=== PATIENT | male | born 1960 | race Caucasian/White ===

== ENCOUNTER → 2016-06-26 | Outpatient (CLI) | payer MEDICAID ==
[~2016-06-26] MED LIST: ANTIVERT/5050 MG PO; NOMEDS XX
--- NOTE | 2016-06-29 05:46 | RADIOLOGY REPORT PS360 ---
MRI-C-SPINE W/O, MRI-3D RENDERING/MYELOGRAM HISTORY: Bilateral neck pain, shoulder pain, bilateral arm pain and numbness. Prior surgery CERVICAL DISC DISEASE, THORACIC SPINE PAIN ORDERING PHYSICIAN: Humberto Medrano MD PATIENT AGE: 56 years COMPARISON: None TECHNIQUE: Standard multiplanar multiecho sequences are performed without contrast. 3-D MIP and myelographic images are also rendered and reviewed FINDINGS: Unremarkable craniocervical junction. There is normal alignment. Hypertrophic changes are present at the atlantoaxial joint mostly anterior. C2-C3: Minimal bulging disc with uncovertebral hypertrophy on the left with mild left foraminal narrowing. C3-C4: There is partial fusion of the C3-C4 vertebral body. C4-C5: Mild concentric bulging disc. Severe facet hypertrophic changes present on the left with left-sided foraminal narrowing. C5-C6: Severe degenerative disc disease. Artifact is present likely from a disc spacer device. Plain film correlation would be helpful. Broad-based disc osteophyte complex is noted with canal stenosis of 10 mm. Bilateral uncovertebral hypertrophy with severe right-sided foraminal narrowing. C6-C7: Severe degenerative disc disease with endplate changes along with bulging disc somewhat eccentric toward the right with canal stenosis of 9 mm with severe bilateral lateral recess narrowing greater on the right and severe right-sided foraminal narrowing. C7-T1: Unremarkable. There is some increased T2 signal involving the spinal cord at the C6-C7 level IMPRESSION: 1. Severe spondylosis of the cervical spine with multilevel degenerative disc disease, bulging disc, and endplate osteophytes as detailed each level above. 2. Postsurgical changes at C5-C6 with disc spacer device along with broad-based disc osteophyte complex with canal stenosis and severe right lateral recess and foraminal narrowing. 3. Severe degenerative disc disease C6-C7 with endplate changes along with bulging disc /disc osteophyte complex somewhat eccentric toward the right with canal stenosis of 9 mm with severe bilateral lateral recess narrowing greater on the right and severe right-sided foraminal narrowing. 4. Nonspecific slight increased T2 signal of the cord at C6-C7 which may be related to some underlying gliosis from the canal stenosis
--- NOTE | 2016-06-29 05:53 | RADIOLOGY REPORT PS360 ---
MRI-T-SPINE W/O HISTORY: Thoracic fine pain, back pain, mid back pain THORACIC SPINE PAIN ORDERING PHYSICIAN: Humberto Medrano MD PATIENT AGE: 56 years COMPARISON: None TECHNIQUE: Standard multiplanar multiecho sequences are performed without contrast. 3-D MIP and myelographic images are also rendered and reviewed FINDINGS: There is normal alignment. No fracture or dislocation is evident. There is mild uniform decrease in the suspected disc height throughout the thoracic spine. T7-T8: There is a small central left paracentral disc herniation with minimal superior extrusion of the disc which is abutting the anterior and left aspect of the cord without cord flattening or displacement. There is minimal prominence of the posterior longitudinal ligament T8-T9, T9-T10, and T10-T11. IMPRESSION: Small central/left paracentral disc herniation with minimal superior extrusion of T7-T8 which does abut the anterior left aspect of the cord without cord flattening or displacement
== END ==
LOC: RAD 08:41
DX: M50.90 Cervical disc disorder, unspecified, unspecified cervical region (principal); M54.6 Pain in thoracic spine

== ENCOUNTER → 2016-11-23 | Outpatient (CLI) | payer MEDICAID ==
--- NOTE | 2016-11-24 09:01 | RADIOLOGY REPORT PS360 ---
US ABD(COMPLETE-MULTI ORGANS HISTORY: ABD DISTENTION Patient Age: 56 years: Male Ordering Physician: DARELL WARNER TECHNIQUE: Ultrasound abdomen complete COMPARISON :August [address] chest which includes upper abdomen from October 2016 and May 2016 FINDINGS Pancreas. Unremarkable. Head body and medial tail visualized. Liver. No focal solid mass. Subtle fatty liver changes Portal vein with normal direction flow generous but normal diameter. Common duct measures appears 6 mm at the inferior hilum of the liver. No expanded biliary ductal dilatation. Gallbladder appears normal in size. No gallstones no significant wall thickening. Aorta measures 1.7 cm at the level of the umbilicus. No dilatation. Right kidney: measures 10.7 seem in length. Cortex well-maintained. Normal appearance. Left kidney: 11.6 seem in length x 4.5 cm x 6.6 cm. In Spleen normal size. Unremarkable. Less than 10 cm length maximally. IMPRESSION........... No significant findings Gallbladder. No gallstones. Scant sludge and debris Liver. Appears satisfactory with only some subtle fatty areas liver Common duct normal Kidneys unremarkable. Spleen, aorta unremarkable. IMPRESSION:
== END ==
LOC: RAD 07:37
DX: R14.0 Abdominal distension (gaseous) (principal)

== ENCOUNTER 2016-12-16 09:06 | Day surgery (SDC) | payer MEDICAID ==
[~2016-12-16] VITALS: Ht 182.9 cm; Wt 99.8 kg
--- NOTE | 2016-12-16 10:45 | Operative Note ---
Upper GI Endoscopy Procedure date: 12/16/16 Date of : 60 Indications: chest pain Performing Provider: Maximus Copeland Referring Provider: Mitchell Sedation: MAC Procedure: Prior to the procedure, a history and physical exam was performed, and patients medications and allergies were reviewed. The risks and benefits of the procedure and the sedation options and risks were discussed with the patient. All questions were answered and informed consent was obtained. The patient was brought to the procedure room. Patient identification and proposed procedure were verified by the physician and the nurse. The patient was placed in a left lateral decubitus position and the scope was passed under direct vision. Throughout the procedure, the patient's blood pressure, pulse, and oxygen saturations were monitored continuously. The endoscope was introduced through the mouth, and advanced to the second part of duodenum. The upper GI endoscopy was accomplished without difficulty. The patient tolerated the procedure well. Findings: 1) Gastric bezoar filling 30% of gastric body 2) Hiatal hernia 3 cm 3) Grade II erosive reflux esophagitis 4) Esophagus, duodenum, antrum otherwise WNL Immediate complications: None EBL (ml): 0 Impression: 1) Gastric bezoar filling 30% of gastric body - likely due to narcotic-induced delayed gastric emptying 2) Hiatal hernia 3 cm 3) Grade II erosive reflux esophagitis 4) Esophagus, duodenum, antrum otherwise WNL 5) It is likely that persistent (24hr) CP is related to narcotic addiction and esophageal dysmotility Recommendations: 1) PPI q AM 1/2 hr before breakfast 2) For gastroparesis - consider narcotic taper +/- domperidone 10 mg po qid ( available in [place] or [place], [place] via internet) - will need EKG before starting and after to assess conduction changes (e.g. QT prolongation) 3) Would seriously consider narcotic taper (possibly w/help of suboxone - available in our GI clinic) at [id number]
--- NOTE | 2016-12-16 10:51 | Operative Note ---
Colonoscopy Procedure date: 12/16/16 Date of : 60 Procedure:Colonoscopy polypectomy Indications: surveillance for previous TA > 5yr Performing Provider: Maximus Copeland Referrring Provider: Mitchell Sedation: MAC Procedure: Prior to the procedure, a history and physical exam was performed, and patient medications and allergies were reviewed. The risks and benefits of the procedure and the sedation options and risks were discussed with the patient. All questions were answered and informed consent was obtained. The patient was brought to the procedure room. Patient identification and proposed procedure were verified by the physician and the nurse. The patient was placed in a left lateral decubitus position and the scope was passed under direct vision. Throughout the procedure, the patient's blood pressure, pulse, and oxygen saturations were monitored continuously. The colonoscope was introduced through the anus and advanced to the CECUM with identification of the appendiceal orifice and ileocecal valve. The colonoscopy was performed with difficulty DUE TO INADEQUATE PREP. The patient tolerated the procedure well. The quality of the bowel preparation was INADEQUATE W/ STOOL >30% OF LUMEN. Findings: 1) 6-8MM POLYPS IN ASCENDING AND DESCENDING COLONS REMOVED W/ COLD SNARE AND RETRIEVED COMPLETELY 2) THE REMAINDER OF THE COLON NOT SEEN ADEQUATELY - STOOL >305 OF LUMEN W/ VEGETABLE MATTER. Immediate complications: None EBL (ml): 2 Impression: 1) 6-8MM POLYPS IN ASCENDING AND DESCENDING COLONS REMOVED W/ COLD SNARE AND RETRIEVED COMPLETELY 2) THE REMAINDER OF THE COLON NOT SEEN ADEQUATELY - STOOL >305 OF LUMEN W/ VEGETABLE MATTER. Recommendations: REPEAT AT NEXT AVAILABLE WITH 2 DAY PREP (WE WILL ORDER). at [id number]
[2016-12-16 12:58] VITALS: BP 114/71
== END 2016-12-16 11:45 | disposition home or self-care (01) ==
LOC: SDC 09:06
PROVIDERS: Internal Medicine Gastroenterology
PROC: 0DBM8ZX Excision of Descending Colon, Via Natural or Artificial Opening Endoscopic, Diagnostic (ICD-10-PCS; 2016-12-16)
PROC: 0DBK8ZX Excision of Ascending Colon, Via Natural or Artificial Opening Endoscopic, Diagnostic (ICD-10-PCS; principal; 2016-12-16 12:00)
DX: Z12.11 Encounter for screening for malignant neoplasm of colon (principal); K63.5 Polyp of colon

== ENCOUNTER → 2016-12-29 | Outpatient (CLI) | payer MEDICAID ==
[2016-12-29 13:57] LABS: AMPHETAMINES/METAMPHETAMINES NEGATIVE ng/mL (<1000)
[2017-01-04 20:36] LABS: Opiates Negative (Cutoff=100)
== END ==
LOC: LAB 13:17
PROVIDERS: Emergency Medicine
DX: Z79.899 Other long term (current) drug therapy (principal)

== ENCOUNTER → 2017-03-22 | Outpatient (CLI) | payer MEDICAID | LOC: SL 20:13 | DX: G47.33 Obstructive sleep apnea (adult) (pediatric) (principal); G47.10 Hypersomnia, unspecified; R06.83 Snoring ==